=== PATIENT | female | born 1995 | race African-American/Black ===

== ENCOUNTER 2017-03-09 02:16 | Emergency (ER) | payer OTHER ==
[~2017-03-09] VITALS: Ht 160 cm; Wt 105.2 kg
[~2017-03-09 02:16] MED LIST: MULTI-VITAMIN1 EAC2 PO; Motrin PO; NOHOMEMEDS; Percocet 5/325,Endoc PO
[2017-03-09 03:45] LABS: HEMATOCRIT 39.9 % (36.0-46.0); MCH 29.5 PG (29.0-34.0); MCHC 32.3 G/DL (30.0-36.0); MCV 91.1 FL (83-99); MEAN PLAT.VOLUME 10.6 uM^3 (9.5-12.4); PLATELET COUNT 275 K/uL (156-360); RBC DIS.WIDTH-CV 12.3 % (11.8-14.6); RBC DIS.WIDTH-SD 41.1 % (39-53); RED BLOOD COUNT 4.38 M/uL (3.80-5.20); WHITE BLOOD COUNT 8.7 K/uL (4.1-10.2)
[2017-03-09 03:56] LABS: CHLORIDE 107 mEq/L (99-109)
[2017-03-09 03:57] LABS: POTASSIUM 3.9 mEq/L (3.7-5.4); SODIUM 139 mEq/L (136-147)
[2017-03-09 03:58] LABS: GLUCOSE 82 mg/dL (70-99)
[2017-03-09 04:00] LABS: ANION GAP 9 MEQ/L (2-14)
[2017-03-09 04:02] LABS: GFR ESTIMATE (CALCULATED) > 59 mL/min/
[2017-03-09 04:03] LABS: UREA NITROGEN (BUN) 16 mg/dL (9-23)
[2017-03-09 04:09] LABS: ADD MIUA? YES; BILIRUBIN NEGATIVE; BLOOD NEGATIVE; COLOR YELLOW ((YELLOW)); GLUCOSE (STRIP) NEGATIVE; KETONES NEGATIVE; LEUKOCYTES NEGATIVE; NITRITE NEGATIVE; PROTEIN (STRIP) 30; SPECIFIC GRAVITY 1.018 (1.000-1.030); UROBILINOGEN 0.2 MG/DL (0.2-1.0)
[2017-03-09 04:10] LABS: QUANTITATIVE HCG < 4.0 MIU/ML
[2017-03-09 05:55] LABS: EPITHELIAL CELLS RARE /HPF; RED BLOOD CELLS NONE SEEN /HPF (0-5); WHITE BLOOD CELLS NONE SEEN /HPF (0-5)
[2017-03-09 05:56] LABS: MUCUS 1+ /LPF
[2017-03-09 05:57] LABS: AMORPHOUS PHOSPHATE CRYSTALS 4+; BACTERIA 1+ /HPF; CRYSTALS PRESENT; UCUL ADDED? NO
[2017-03-09 06:04] VITALS: BP 97/63
== END 2017-03-09 06:06 | disposition home or self-care (01) ==
LOC: EME 02:16
PROVIDERS: Physician Assistant
DX: N83.202 Unspecified ovarian cyst, left side (principal); Z87.440 Personal history of urinary (tract) infections
CPT/HCPCS: 74176; 80048; 81003; 84702; 85027; 87086; 99281; 99285; J7030